=== PATIENT | female | born 1960 | race Caucasian/White ===

== ENCOUNTER → 2017-09-20 12:38 | Outpatient (CLI) | payer BC ==
[~2017-09-20 12:38] MED LIST: AMBIEN10 MG PO; BAYER CHEWABLE81 MG PO; CRESTOR5 MG PO; DEXILANT60 MG PO; EFFEXOR XR75 MG PO; ISOSORBIDE MONO30 M1 PO; MOBIC7.5 MG PO; NORVASC10 MG PO; PLAVIX75 MG PO; PRINIVIL10 MG PO; PROTONIX40 MG PO; ULTRAM50 MG PO; VITAMIN B-625 MG PO; VITAMIN D2000 UNIT; XANAX0.25 MG PO; ZOVIRAX400 MG PO
== END | disposition home or self-care (01) ==
LOC: D.US 12:38
DX: I65.23 Occlusion and stenosis of bilateral carotid arteries (principal)

== ENCOUNTER → 2017-09-22 16:50 | Outpatient (CLI) | payer BC | END | disposition home or self-care (01) | LOC: D.MAMMO 09-21 11:30 | DX: Z12.31 Encounter for screening mammogram for malignant neoplasm of breast (principal) ==

== ENCOUNTER 2019-01-29 08:00 | Outpatient (CLI) | payer BC | END 2019-01-29 23:59 | disposition home or self-care (01) | LOC: D.MAMMO 08:00 | PROVIDERS: ATTEND Family Medicine | DX: Z12.31 Encounter for screening mammogram for malignant neoplasm of breast (principal) ==

== ENCOUNTER → 2019-03-21 13:05 | Outpatient (CLI) | payer BC | END | disposition home or self-care (01) | LOC: D.US 13:00 | PROVIDERS: ATTEND Internal Medicine Cardiovascular Disease | DX: I65.23 Occlusion and stenosis of bilateral carotid arteries (principal) ==

== ENCOUNTER → 2019-04-10 12:09 | Outpatient (CLI) | payer BC | END | disposition home or self-care (01) | LOC: D.US 12:09 | PROVIDERS: ATTEND Internal Medicine Cardiovascular Disease | DX: I65.23 Occlusion and stenosis of bilateral carotid arteries (principal) ==

== ENCOUNTER → 2019-12-04 13:01 | Outpatient (CLI) | payer BC | END | disposition home or self-care (01) | LOC: D.HCCECHO 13:00 | PROVIDERS: ATTEND Internal Medicine Cardiovascular Disease | DX: I10 Essential (primary) hypertension (principal) ==

== ENCOUNTER 2020-02-01 13:15 | Outpatient (CLI) | payer BC | END 2020-02-01 14:15 | disposition home or self-care (01) | LOC: D.MAMMO 13:15 | PROVIDERS: ATTEND Family Medicine | DX: Z12.31 Encounter for screening mammogram for malignant neoplasm of breast (principal) ==

== ENCOUNTER → 2020-03-25 11:26 | Outpatient (CLI) | payer BC | END | disposition home or self-care (01) | LOC: D.US 11:26 | PROVIDERS: ATTEND Internal Medicine Cardiovascular Disease | DX: I65.29 Occlusion and stenosis of unspecified carotid artery (principal) ==

== ENCOUNTER 2020-09-24 06:18 | Day surgery (SDC) | payer BC ==
[~2020-09-24] VITALS: Ht 167.6 cm; Wt 72.7 kg
[~2020-09-24 06:18] MED LIST changes: +BETAPACE 120 M120 MG PO; +BETAPACE 80 MG80 MG PO; +FLAGYL500 MG PO; +ISOSORBIDE DINI30 MG PO; +LEVOFLOXACIN500 MG PO; +LIVALO2 MG PO; +SYNTHROID25 MCG PO; +XARELTO20 MG PO
[2020-09-24 06:55] LABS: ANION GAP 11.5 mmol/L (8-16); CALCIUM 9.4 mg/dL (8.5-10.1); CARBON DIOXIDE 28.3 mmol/L (21.0-32.0); CREATININE - SERUM 1.1 mg/dL (0.6-1.3); POTASSIUM - SERUM 3.8 mmol/L (3.5-5.1)
[2020-09-24 07:04] VITALS: Ht 167.6 cm; Wt 72.7 kg
[2020-09-24 07:09] LABS: EOSINOPHILS 2.3 % (0-7); HEMATOCRIT 41.9 % (36.0-48.0); HEMOGLOBIN 13.8 g/dL (12-16); IMMATURE GRANULOCYTES 0.1 % (0-5); LYMPHOCYTE ABS# 1.94 10x3/uL (1.18-3.74); LYMPHOCYTES 27.6 % (15-50); MCH 30.1 pg (26.0-34.0); MCHC 32.9 g/dL (31.0-37.0); MCV 91.3 fL (80.0-100.0); MEAN PLATELET VOLUME 10.4 fL (7.4-10.4); MONOCYTES 10.1 % (2-11); NEUTROPHIL ABS# 4.13 10x3/uL (1.56-6.13); NEUTROPHILS 58.9 % (40-80); PLATELET COUNT 317 10x3/uL (130-400); RBC 4.59 10x6/uL (4.00-5.40); RDW 12.4 % (11.5-14.5)
--- NOTE | 2020-09-24 16:14 | NUR ---
1315 IV REMOVED AND PRESSURE HELD. INSTRUCTIONS GIVEN.
== END 2020-09-24 14:10 | disposition home or self-care (01) ==
LOC: D.OPS 06:18
PROVIDERS: Anesthesiology; ATTEND Surgery
DX: Z87.19 Personal history of other diseases of the digestive system (principal); K44.9 Diaphragmatic hernia without obstruction or gangrene; K64.8 Other hemorrhoids; K92.2 Gastrointestinal hemorrhage, unspecified; K57.32 Diverticulitis of large intestine without perforation or abscess without bleeding; Z01.31 Encounter for examination of blood pressure with abnormal findings; I73.9 Peripheral vascular disease, unspecified

== ENCOUNTER → 2020-12-01 11:23 | Outpatient (CLI) | payer BC ==
[2020-09-24 07:04] VITALS: BMI 25.8
== END | disposition home or self-care (01) ==
LOC: D.US 11:23
PROVIDERS: ATTEND Internal Medicine Cardiovascular Disease
DX: I65.29 Occlusion and stenosis of unspecified carotid artery (principal)